=== PATIENT | male | born 1960 | race African-American/Black ===

== ENCOUNTER 2016-10-17 21:34 | Emergency (ER) | payer OTHER ==
[~2016-10-17] VITALS: Ht 182.9 cm; Wt 90.0 kg
[2016-10-17] MEDS ORDERED: ACETAMINOPHEN 325 MG TABLET PO ONE (22:00)
[2016-10-18] MEDS ORDERED: POVIDONE-IODINE 10% 15 ML SOLUTION UD TP ONE (00:15)
[2016-10-18] MEDS ORDERED: BUPIVACAINE HCL/PF 0.25% 10 ML VIAL INJ ONE (00:15)
[2016-10-18] MEDS ORDERED: IBUPROFEN 800 MG TABLET PO ONE (00:45)
[2016-10-18 01:14] VITALS: BP 128/74
== END 2016-10-18 01:26 | disposition home or self-care (01) ==
LOC: EMS 21:39
DX: L02.412 Cutaneous abscess of left axilla (principal); L73.2 Hidradenitis suppurativa
CPT/HCPCS: 10061; 99284; J3490

== ENCOUNTER 2016-10-20 08:50 | Emergency (ER) | payer OTHER ==
[~2016-10-20] VITALS: Ht 182.9 cm; Wt 90.9 kg
[2016-10-20] MEDS ORDERED: SULF1TAB42 PO (09:08)
[2016-10-20] MEDS ORDERED: CEPH500B PO (09:08)
[2016-10-20] MEDS ORDERED: POVIDONE-IODINE 10% 15 ML SOLUTION UD TP ONE (11:30)
[2016-10-20 13:30] VITALS: BP 111/71
== END 2016-10-20 13:30 | disposition home or self-care (01) ==
LOC: EMS 08:52
DX: S41.101A Unspecified open wound of right upper arm, initial encounter (principal); L03.112 Cellulitis of left axilla; L03.111 Cellulitis of right axilla; L02.411 Cutaneous abscess of right axilla; L02.412 Cutaneous abscess of left axilla; L08.9 Local infection of the skin and subcutaneous tissue, unspecified; X58.XXXA Exposure to other specified factors, initial encounter; Y93.89 Activity, other specified; Y92.89 Other specified places as the place of occurrence of the external cause; Y99.9 Unspecified external cause status
CPT/HCPCS: 99282